=== PATIENT | female | born 1950 | race Caucasian/White ===

== ENCOUNTER → 2017-08-15 | Outpatient (CLI) | payer BC | LOC: MAMMO 12:59 | DX: Z12.31 Encounter for screening mammogram for malignant neoplasm of breast (principal) ==

== ENCOUNTER → 2020-06-29 | Outpatient (CLI) | payer BC | LOC: MAMMO 11:30 | DX: Z12.31 Encounter for screening mammogram for malignant neoplasm of breast (principal) ==

== ENCOUNTER 2023-11-08 09:00 | Outpatient (RCR) | payer MEDICARE, OTHER | END 2023-12-07 12:39 | LOC: OPPGERO 09:00 | DX: F33.1 Major depressive disorder, recurrent, moderate (principal); F41.1 Generalized anxiety disorder | CPT/HCPCS: C7903; G0410 ==

== ENCOUNTER 2023-12-31 21:41 | Emergency (ER) | payer MEDICARE, OTHER ==
[~2023-12-31] VITALS: Ht 170.2 cm; Wt 63.6 kg
[2023-12-31] MEDS ORDERED: DESYREL50 MG PO (21:57)
[2023-12-31] MEDS ORDERED: DULOXETINE60 MG PO (21:57)
[2023-12-31] MEDS ORDERED: CARVEDILOL3.125 MG PO (21:57)
[2023-12-31] MEDS ORDERED: Morphine 4 MG/ML VIAL IV ONE (22:15)
[2023-12-31 22:26] LABS: BASO # 0.05 K/mm3 (0.02-0.10); EOS # 0.12 K/mm3 (0.04-0.40); EOS % 1.4 % (1.0-5.0); HEMATOCRIT 38.8 % (37.0-47.0); HEMOGLOBIN 12.9 g/dL (12.5-16.0); LYMPH# 2.25 K/mm3 (1.50-4.00); MEAN CELL VOLUME 97 fl (78-100); MEAN CORPUSCULAR HEMOGLOBIN 32 pg (27-31); MEAN CORPUSCULAR HGB CONC 33 g/dL (33-37); MEAN PLATELET VOLUME 10.6 fl (7.4-10.4); MONO # 0.75 K/mm3 (0.20-0.80); NEU # 5.12 K/mm3 (1.40-6.50); PLATELET COUNT 260 K/mm3 (130-400); RED CELL DISTRIBUTION WIDTH 11.7 % (11.5-14.5); WHITE BLOOD COUNT 8.3 K/mm3 (4.8-10.8)
[2023-12-31 22:33] LABS: SODIUM 139 mmol/L (136-145)
[2023-12-31 22:35] LABS: CALCIUM 9.7 mg/dL (8.3-10.5)
[2023-12-31 22:36] LABS: GLUCOSE 102 mg/dL (65-105); TOTAL PROTEIN 6.5 g/dL (6.2-8.1)
[2023-12-31] MEDS ORDERED: Iohexol 300 - 100 ML VIAL IV ONE (22:37)
[2023-12-31 22:38] LABS: CARBON DIOXIDE 23 mmol/L (23-31)
[2023-12-31 22:39] LABS: TOTAL BILIRUBIN 0.6 mg/dL (0.2-1.2)
[2023-12-31 22:41] LABS: AST-SGOT 71 U/L (5-34)
[2023-12-31 22:42] LABS: ALT/SGPT 41 U/L (0-55)
[2023-12-31 22:43] LABS: LIPASE 34 U/L (8-78)
[2023-12-31] MEDS ORDERED: ASPIRIN 81M81 MG/TA2 PO (22:45)
[2023-12-31 22:49] LABS: TROPONIN-I < 0.030 ng/mL (0.00-0.033)
[2023-12-31 23:14] LABS: URINE APPEARANCE CLEAR (CLEAR); URINE COLOR YELLOW (YELLOW)
[2023-12-31] MEDS ORDERED: cefTRIAXone 1 G in Water For Injection,Sterile 10 ML IV ONE (23:15)
[2023-12-31 23:16] LABS: URINE BILIRUBIN NEGATIVE (NEGATIVE); URINE BLOOD TRACE-INTACT (NEGATIVE); URINE GLUCOSE NEGATIVE (NEGATIVE); URINE KETONE NEGATIVE (NEGATIVE); URINE LEUKOCYTE ESTERASE NEGATIVE (NEGATIVE); URINE NITRATE NEGATIVE (NEGATIVE); URINE PROTEIN(semi-quant) NEGATIVE (NEGATIVE)
[2023-12-31 23:21] LABS: URINE WBC 0-1 /hpf (0-3)
[2023-12-31 23:50] VITALS: BP 141/81
== END 2023-12-31 23:50 | disposition short-term general hospital (02) ==
LOC: ED 21:41
PROVIDERS: Physician Assistant
DX: K80.10 Calculus of gallbladder with chronic cholecystitis without obstruction (principal)
CPT/HCPCS: J0696; J2270; Q9967

== ENCOUNTER 2024-01-04 13:24 | Emergency (ER) | payer MEDICARE, OTHER ==
[~2024-01-04] VITALS: Ht 170.2 cm; Wt 63.6 kg
[~2024-01-04 13:24] MED LIST: ASPIRIN 81M81 MG/TA2 PO; CARVEDILOL3.125 MG PO; DESYREL50 MG PO; DULOXETINE60 MG PO
[2024-01-04 15:01] LABS: BASO # 0.05 K/mm3 (0.02-0.10); EOS # 0.11 K/mm3 (0.04-0.40); EOS % 1.4 % (1.0-5.0); HEMATOCRIT 38.8 % (37.0-47.0); LYMPH# 1.19 K/mm3 (1.50-4.00); MEAN CELL VOLUME 95 fl (78-100); MEAN CORPUSCULAR HEMOGLOBIN 32 pg (27-31); MEAN CORPUSCULAR HGB CONC 34 g/dL (33-37); MEAN PLATELET VOLUME 10.8 fl (7.4-10.4); MONO # 0.71 K/mm3 (0.20-0.80); NEU # 5.74 K/mm3 (1.40-6.50); PLATELET COUNT 276 K/mm3 (130-400); RED BLOOD COUNT 4.07 M/mm3 (4.10-5.30); RED CELL DISTRIBUTION WIDTH 11.5 % (11.5-14.5); WHITE BLOOD COUNT 7.8 K/mm3 (4.8-10.8)
[2024-01-04 15:11] LABS: URINE WBC 0 /hpf (0-3)
[2024-01-04 15:14] LABS: ALBUMIN 4.1 g/dL (3.4-4.8); SODIUM 137 mmol/L (136-145)
[2024-01-04 15:15] LABS: CALCIUM 9.1 mg/dL (8.3-10.5)
[2024-01-04 15:16] LABS: GLUCOSE 108 mg/dL (65-105)
[2024-01-04 15:17] LABS: TOTAL PROTEIN 6.6 g/dL (6.2-8.1)
[2024-01-04 15:18] LABS: CARBON DIOXIDE 24 mmol/L (23-31); TOTAL BILIRUBIN 0.9 mg/dL (0.2-1.2)
[2024-01-04 15:23] LABS: ALT/SGPT 175 U/L (0-55)
[2024-01-04 15:24] LABS: AST-SGOT 344 U/L (5-34); LIPASE 18 U/L (8-78)
[2024-01-04 15:24] LABS: URINE APPEARANCE CLEAR (CLEAR); URINE BILIRUBIN NEGATIVE (NEGATIVE); URINE COLOR YELLOW (YELLOW); URINE GLUCOSE NEGATIVE (NEGATIVE); URINE KETONE NEGATIVE (NEGATIVE); URINE LEUKOCYTE ESTERASE NEGATIVE (NEGATIVE); URINE NITRATE NEGATIVE (NEGATIVE); URINE PROTEIN(semi-quant) NEGATIVE (NEGATIVE)
[2024-01-04 15:25] LABS: URINE BLOOD 1+ (NEGATIVE)
[2024-01-04 15:35] LABS: TROPONIN-I < 0.030 ng/mL (0.00-0.033)
[2024-01-04 15:53] VITALS: BP 169/81
== END 2024-01-04 16:04 | disposition home or self-care (01) ==
LOC: ED 13:24
PROVIDERS: Family Medicine
DX: R10.11 Right upper quadrant pain (principal); R10.13 Epigastric pain; Z90.49 Acquired absence of other specified parts of digestive tract